=== PATIENT | female | born 2000 | race Caucasian/White ===

== ENCOUNTER 2020-07-10 17:37 | Emergency (ER) | payer OTHER ==
[~2020-07-10] VITALS: Ht 165.1 cm; Wt 80.0 kg
[2020-07-10 18:05] VITALS: BP 122/68
== END 2020-07-10 19:42 | disposition home or self-care (01) ==
LOC: EDBD 17:37 → ED 19:23
DX: J02.8 Acute pharyngitis due to other specified organisms (principal); B97.89 Other viral agents as the cause of diseases classified elsewhere
CPT/HCPCS: 99281